=== PATIENT | female | born 1940 | race Caucasian/White ===

== ENCOUNTER → 2017-02-19 | Outpatient (CLI) | payer MEDICARE, BC ==
[~2017-02-19] MED LIST: ACETAMINOPHEN PO; ACETAMINOPHEN500 M2 PO; ACETAMINOPHEN500 M5 PO; ALBUTEROL17 GM NEB; ALDACTONE25 MG PO; ALLERGY RELIEF10 M1 PO; ALPRAZOLAM PO; ALPRAZOLAM0.25 MG PO; ASPIRIN PO; ASPIRIN81 M2 PO; ATENOLOL PO; ATENOLOL50 MG PO; ATIVAN PO; BIOTIN10 MG PO; CALCIUM 500 + D1 TAB PO; CALTRATE 600+D PO; COZAAR100 MG PO; CRESTOR10 MG PO; CRESTOR40 MG PO; CYCLOBENZAPRINE5 MG PO; CYMBALTA PO; DARVOCET-N 1001 TAB PO; DITROPAN5 MG PO; ESCITALOPRAM OX10 MG PO; FIBERCON625 MG PO; FLEXERIL10 M1 PO; FLEXERIL10 MG PO; HCTZ PO; HYDROCHLOROTHIA25 MG PO; IBUPROFEN PO; K-DUR10 MEQ PO; LORATADINE PO; LOSARTAN POTASS50 MG PO; LOVAZA1 G PO; MIRALAX255 GM PO; NEXIUM PO; OMEGA 3 FISH OI1 CAP PO; PHILLIPS STOOL SOFT PO; PHILLIPS' COLO1 EACH PO; PHILLIPS500 MG PO; POTASSIUM CHLO10 ME1 PO; TENORMIN25 MG PO; TRAMADOL HCL50 M1 PO; VITAMIN C PO; VYTORIN 10/20 T1 TAB PO
--- NOTE | ~2017-02-19 | MY29 ---
[facility] A Service of [facility] & [facility] RADIOLOGY TEXT RESULTS PATIENT: DENTON BLISS LOCATION: [facility] : 42 UNIT #: [id number] AGE: [address]: Juan Ramon Waters MD SEX: F ORDER DR: [id number] [facility] [address] [place], [place] [address] [id number] O MR#: [id number] Acc #: [id number] NAME: DENTON BLISS : 1940 SEX: F STUDY DATE/TIME: 02/19/2017 13:47 UNIT: [facility] ROOM: STUDY DESCRIPTION: MY VERONICA SCREENING W/ CAD BILAT Attending Physician: Juan Ramon Waters Jr., M.D. Referring Physician: Juan Ramon Waters Jr., M.D. Ordering Physician: Juan Ramon Waters Jr., M.D. Primary Care Physician: Juan Ramon Waters Jr., M.D. MEDICAL IMAGING REPORT This report is preliminary unless electronic signature is present EXAM Digital screening mammogram 02/19/2017 HISTORY 76-year-old woman, no risk elevation. Annual screening. Comparison mammograms date to 10/13/2005 with most recent 12/13/2015. FINDINGS Digital imaging of each breast was completed utilizing screening protocol. Review includes FDA-approved CAD device. Breast parenchyma is fatty replaced. Mild subareolar duct prominence is stable bilaterally. There is no interval occurring breast mass. There are no suspicious microcalcifications and no architectural deformity. IMPRESSION Negative mammogram. Annual screening recommended. Patients over the age of 40 are entered into a reminder system with target due date for the next mammogram. A result letter will also be sent to the patient. BIRADS: 1 Negative Dictated by... Ananth Holcomb M.D. THIS IS AN ELECTRONICALLY VERIFIED REPORT Ananth Holcomb M.D. at 02/21/2017 8:06 AM HERMELINDA/ezra TD: 02/20/2017 02:41 [facility] A Service of [facility] & [facility] RADIOLOGY TEXT RESULTS PATIENT: DENTON BLISS LOCATION: [facility] #: [id number] : 42 UNIT #: [id number] AGE: [address]: Juan Ramon Waters MD SEX: F ORDER DR: JOB #: [id number] MEDICAL IMAGING REPORT Page 1 of 1 COPY
== END | disposition home or self-care (01) ==
LOC: CWCC 12:15
DX: Z12.31 Encounter for screening mammogram for malignant neoplasm of breast (principal)
CPT/HCPCS: G0202